=== PATIENT | male | born 1975 | race Two or more races ===

== ENCOUNTER 2025-01-25 10:27 | Emergency (ER) | payer MEDICAID, SELFPAY ==
[2025-01-25 10:47] VITALS: BP 171/123; PULSE 82; RESP 16; TEMP 37; O2SAT 96
[2025-01-25] MEDS: ACETAMINOPHEN 500 MG TABLET 1000 MG PO (11:24)
[2025-01-25] MEDS: KETOROLAC INJ 60 MG/2 ML VIAL IM (11:25)
--- NOTE | 2025-01-25 11:55 | PD.EDUPEX ---
Upper Extremity Injury RME/HPI General Chief Complaint: Extremity Injury, Upper Stated Complaint: PAIN IN L) ARM/HAND SINCE LAST NIGHT Time Seen by Provider: 01/25/25 10:38 Arrival date/time: 01/25/25 10:27 This is a 49 year old male with complaints of right shoulder pain that radiates down his arm to his finger tips. Pt describes his pain as sharp. Pt denies trauma. Pt states he woke up this way. Related Data Previous Rx's ?Medication ?Instructions ?Recorded cyclobenzaprine 10 mg tablet 10 mg PO TID PRN muscle spasm #20 01/25/25 tabs ibuprofen 800 mg tablet 800 mg PO Q6H PRN pain #20 tabs 01/25/25 Allergies Allergy/AdvReac Type Severity Reaction Status Date / Time No Known Allergies Allergy Verified 01/25/25 10:30 Review of Systems Review of Systems Systems Reviewed: All systems reviewed, normal except as documented Past Medical History Past Medical History Comments PMH COMMENT: no pmh ED Exam Narrative Physical exam: VITAL SIGNS: Reviewed. GENERAL APPEARANCE: Alert and interactive, follows commands, no acute distress HEAD AND FACE: Non-traumatic. ENT: PERRL, conjuctiva pink and clear, eyelid no trauma, Mucous membrane moist. NECK: Supple, nontender, no nuchal rigidity. CHEST: No tenderness, no crepitus, no paradoxical movement, no retractions. LUNGS: breathing even and unlabored HEART: Regular rate, cap refill less than 2 seconds ABDOMEN: Soft, nondistended, no guarding, nontender, no rebound, no masses, NEUROLOGICAL: Gross motor function intact sensory function intact, Appropriate for age. MUSCULOSKELETAL: low back nontender, full range of motion.pain with movement of right shoulder EXTREMITIES: No redness no swelling no skin breakdown on bilateral foot and leg. Distal neurovascular status intact bilateral foot SKIN: Color pink, dry, Course Quality Measures none Orders Category Date Time Status Acetaminophen Tab [Tylenol ES Tab] Med 01/25/25 11:08 Discontinued 1,000 mg PO X1 ONE CYCLObenzaPRINE [Flexeril] Med 01/25/25 11:08 Discontinued 10 mg PO X1 ONE Ibuprofen Tab [Motrin Tab] Med 01/25/25 11:08 Discontinued 800 mg PO X1 ONE Ketorolac Inj [Toradol Inj] Med 01/25/25 11:17 Discontinued 60 mg IM X1 ONE Vital Signs Vital signs: Vital Signs Temperature 98.6 F 01/25/25 10:47 Pulse Rate 82 01/25/25 10:47 Respiratory Rate 16 01/25/25 10:47 Blood Pressure 171/123 H 01/25/25 10:47 Pulse Oximetry (%) 96 01/25/25 10:47 Oxygen Delivery Method Room Air 01/25/25 10:47 Extremity Injury MDM Narrative MDM Narrative:: Patient was given Flexeril, Toradol and Tylenol. Patient states pain is better. Pain seems to be exacerbated with movement of the right shoulder. Patient states that pain starts kind of sometimes and is in his neck goes to his shoulder and then goes down his arm. Explained to patient that he can have some impingement. he did get relief with muscle relaxants and anti-inflammatories. Explained to patient at length to rest ice at home. Patient having no numbness no tingling. patient has no focal deficit. patient will follow-up with primary provider in 1 to 2 days. come back to emergency room symptoms change or worsen. Dragon dictation: Although this document has been carefully reviewed, there may still be some phonetic and other typographical errors. These errors are purely grammatical due to imperfections in the software program and should not be construed in any way to compromise the substance of the patient's medical care during this visit. Patient data External records reviewed:: [facility] previous records Clinical information provided by:: patient Social determinants that could affect healthcare access:: none Patient has the following chronic illnesses:: None How is presenting disease/condition affected by chronic disease/condition?: no chronic disease Evaluation data The following diagnostics were reviewed and interpreted by me:: other (specify) (None) Lab and/or radiology exams considered but not ordered:: We did discuss possible x-ray of the neck shoulder or arm. Patient has no trauma to this area. Interpretation Summary: See note Medications / Prescriptions Medications or Prescriptions considered but not ordered:: None Medication administrations:: Medication Administration History Discontinued Medications Acetaminophen (Acetaminophen 500 Mg Tablet) 1,000 mg PO X1 ONE Stop: 01/25/25 11:09 Last Admin: 01/25/25 11:24 Dose: 1,000 mg Documented By: KASSI Cyclobenzaprine HCl (Cyclobenzaprine 5 Mg Tablet) 10 mg PO X1 ONE Stop: 01/25/25 11:09 Last Admin: 01/25/25 11:24 Dose: 10 mg Documented By: KASSI Ibuprofen (Ibuprofen Tab 400 Mg Tablet) 800 mg PO X1 ONE Stop: 01/25/25 11:09 Last Admin: 01/25/25 11:25 Dose: Not Given Documented By: KASSI Non-Admin Reason: Cancelled by Provider Ketorolac Tromethamine (Ketorolac Inj 60 Mg/2 Ml Vial) 60 mg IM X1 ONE Stop: 01/25/25 11:18 Last Admin: 01/25/25 11:25 Dose: 60 mg Documented By: KASSI See [facility] Consultations Consultation(s) initiated? (list below): No Diagnosis Upper Extremity Injury Differential Diagnosis: other (Impingement, arm pain, contusion) Most likely diagnosis given after review of the tests above:: Possible impingement on pain Admission Indicated Admission indicated?: not indicated Admission Request Was there a request for admission?: No Disposition Plan Disposition Plan: Discharge Discharge Attestation Discharge Attestation: The patient and all family members were given an opportunity to ask questions and understood the discharge instructions. Discharge instructions specifically effects, indications for sooner follow up or return to the emergency department, and the expected course of current diagnosis. Patient condition: Stable Discharge Plan Plan Patient Disposition: HOME (Self Care) Patient condition on transfer: Stable Prescriptions/Referrals Prescriptions/Med Rec: New cyclobenzaprine 10 mg tablet 10 mg PO TID PRN (Reason: muscle spasm) Qty: 20 0RF ibuprofen 800 mg tablet 800 mg PO Q6H PRN (Reason: pain) Qty: 20 0RF Referrals: Javier Araujo MD [Primary Care Provider, Family Practice] - In 1 week Problem List Clinical Impression: Arm pain Patient/Caregiver Discharge Instructions Discharge Activity: activity as tolerated Education Materials: ED Myalgias, ED RICE Additional Instructions: Follow up with primary provider in 1-2 days. Come back to ED if symptoms change or worsen Print Language: Guatemalan Stand Alone Forms: Katina Award Info., Patient Portal Info Letter PA/WOODY Supervising Physician ENEDINA/WOODY Supervising Physician: [email or web address]
== END 2025-01-25 13:23 | disposition home or self-care (01) ==
PROVIDERS: Emergency Provider Emergency Medicine; PCP Family Medicine
DX: M25.511 Pain in right shoulder (principal)
CPT/HCPCS: 96372; 99283; J1885; A9270